=== PATIENT | male | born 1980 | race Two or more races ===

== ENCOUNTER 2021-12-10 14:20 | Emergency (ER) | payer OTHER ==
[~2021-12-10] VITALS: Ht 170.2 cm; Wt 81.6 kg
== END 2021-12-10 16:27 | disposition home or self-care (01) ==
LOC: ER 14:20
DX: S01.521A Laceration with foreign body of lip, initial encounter (principal); W27.8XXA Contact with other nonpowered hand tool, initial encounter; Y93.9 Activity, unspecified

== ENCOUNTER 2023-12-20 10:22 | Outpatient (CLI) | payer OTHER | END 2023-12-20 10:24 | disposition home or self-care (01) | LOC: SONOGRAMA 10:22 | PROVIDERS: ATTEND Physical Medicine & Rehabilitation Hospice and Palliative Medicine | DX: M25.521 Pain in right elbow (principal); M77.11 Lateral epicondylitis, right elbow ==